=== PATIENT | male | born 1990 | race Caucasian/White ===

== ENCOUNTER 2022-04-01 10:40 | Observation (INO) | payer BC ==
[2022-04-01] MEDS ORDERED: Ondansetron 4 MG/2 ML SDV IV PRN (10:52)
[2022-04-01] MEDS ORDERED: Sodium Chloride 0.9% 10 ML Syringe FLUSH PRN (10:52)
[2022-04-01] MEDS ORDERED: Thiamine 500 MG in Sodium Chloride 0.9% 100 ML IV ONE ×2 (11:00→12:30)
[2022-04-01] MEDS: NS with KCl 40mEq 1,000 ML IV SCH ×2 (12:05→16:46)
[2022-04-01] MEDS: Folic Acid 1 MG Tab PO SCH (12:06)
[2022-04-01] MEDS: Magnesium Oxide 400 MG Tab PO SCH ×2 (12:06→20:32)
[2022-04-01] MEDS: Potassium Chloride 20 MEQ Tab.ER PO SCH ×3 (12:06→20:32)
[2022-04-01] MEDS ORDERED: LORazepam 0.5 MG Tab PO PRN (13:58)
[2022-04-01] MEDS ORDERED: Potassium Chloride 20 MEQ Tab.ER PO ONE (16:04)
[2022-04-01] MEDS ORDERED: Acetaminophen/HYDROcodone 325-5 MG Tab PO PRN (17:10)
[2022-04-01] MEDS: Omeprazole 20 MG Cap.CR PO SCH (17:12)
[2022-04-01] MEDS ORDERED: LORazepam 2 MG/ML SDV IVPUSH PRN (17:18)
[2022-04-01] MEDS ORDERED: Flumazenil 0.1 MG/ML 5 ML MDV IVPUSH PRN (17:18)
[2022-04-01 20:18] LABS: CHLORIDE,CL 97 mmol/L (98-107); SODIUM,NA 136 mmol/L (136-145)
[2022-04-01 20:19] LABS: ANION GAP 8.1 mmol/L (5-15)
[2022-04-02] MEDS: NS with KCl 40mEq 1,000 ML IV SCH (00:34)
[2022-04-02 07:25] LABS: CHLORIDE,CL 102 mmol/L (98-107); SODIUM,NA 139 mmol/L (136-145)
[2022-04-02 07:26] LABS: ANION GAP 9.6 mmol/L (5-15)
[2022-04-02] MEDS ORDERED: Thiamine 500 MG in Sodium Chloride 0.9% 100 ML IV ONE (09:00)
[2022-04-02] MEDS: Potassium Chloride 20 MEQ Tab.ER PO SCH (09:23)
[2022-04-02] MEDS: Omeprazole 20 MG Cap.CR PO SCH (09:23)
[2022-04-02] MEDS: Magnesium Oxide 400 MG Tab PO SCH (09:23)
[2022-04-02] MEDS: Folic Acid 1 MG Tab PO SCH (09:23)
== END 2022-04-02 10:33 | disposition home or self-care (01) ==
LOC: VM.MS 10:44
PROVIDERS: ADMIT Internal Medicine; ATTEND Internal Medicine
DX: E87.6 Hypokalemia (principal); R20.0 Anesthesia of skin; F17.210 Nicotine dependence, cigarettes, uncomplicated; F10.10 Alcohol abuse, uncomplicated; E83.42 Hypomagnesemia; G62.9 Polyneuropathy, unspecified; K75.9 Inflammatory liver disease, unspecified
CPT/HCPCS: 36415; 80053; 80307; 82947; 83690; 83735; 84132; 85025; 96365; 96366; 96375; 96376; A9270-GY; G0378; G0379; J3411; J3480